=== PATIENT | male | born 1950 | race Caucasian/White ===

== ENCOUNTER 2016-03-12 11:34 | Emergency (ER) | payer MEDICARE, OTHER ==
[~2016-03-12] VITALS: Ht 172.7 cm; Wt 87.7 kg
[~2016-03-12 11:34] MED LIST: ALPR.25T PO; ASPI-351 PO; FENO160T14 PO; GLPZ5T1 PO; INSU100V10 SQ; ISOS30TA41 PO; LISI10TA PO; LOPRESSOR25 MG PO; OMPR20CCR PO; ZOC20 PO
[2016-03-12 12:02] VITALS: BP 144/83; PULSE 82; RESP 20; O2SAT 97
--- NOTE | 2016-03-12 13:31 | ED.REPORT ---
HPI-Psychiatric Illness Date of Service Mar 12, 2016 ED Provider: Neyda Andrade History of Present Illness: depression SI thoughts, dx in 84 as bipolar. 2 mvas in the last 2 week. dx with influenza 2 weeks ago, feeling better from the influenza. counselor is samson denny with the [facility]. last visit was a week ago today. jordin is primary care, he is at the [facility]. reports many plans over the years, depends on his moods. Nursing Notes Stated Complaint: EXCESSIVE DEPRESSION Chief Complaint: Psychiatric Complaint Nursing Notes Reviewed: Yes Allergies: Coded Allergies: diphenhydramine (Verified Allergy, Severe, 06/24/10) incoherent clotrimazole (Verified Allergy, Mild, PER H&P, 06/24/10) lamotrigine (Verified Allergy, Mild, 06/24/10) Uncoded Allergies: Lomotrogine (Allergy, Severe, decreases cognition greatly, 08/08/04) Lamotrigine (Allergy, Unknown, 08/18/04) Pt states SE to much but was not specific. Disregard previous allergy (same drug, wrong spelling).. Scheduled Alprazolam-Expunged Drug, Do Not Renew! (Alprazolam-Expunged Drug, Do Not Renew! ) 0.25 Mg Tablet 0.25 MG PO Q8 Aspirin-Expunged Drug, Do Not Renew! (Aspirin-Expunged Drug, Do Not Renew!) 325 Mg Tablet 325 MG PO DAILY Fenofibrate-Expunged Drug, Do Not Renew! (Fenofibrate-Expunged Drug, Do Not Renew!) 160 Mg Tablet 160 MG PO DAILY INSULIN GLARGINE-Expunged Drug, Do Not Renew! (Lantus-Expunged Drug, Do Not Renew!) 100 Unit/1 Ml Vial 10 U SQ HS Isosorbide Pitt-Expunged Drug, Do Not Renew! (Yvvms-Df-Ltbzagfr Drug, Do Not Renew!) 30 Mg Tabcr 60 MG PO DAILY Lisinopril-Expunged Drug, Do Not Renew! (Lisinopril-Expunged Drug, Do Not Renew! ) 10 Mg Tablet 10 MG PO AM Metoprolol Tart-Expunged Drug, Do Not Renew! (Metoprolol Tart-Expunged Drug, Do Not Renew!) 25 Mg Tab 12.5 MG PO BID Omeprazole-Expunged Drug, Do Not Renew! (Omeprazole-Expunged Drug, Do Not Renew! ) 20 Mg Capsule.dr 20 MG PO AM Simvastatin-Expunged Drug, Choose New Med! (Simvastatin-Expunged Drug, Choose New Med!) 20 Mg Tablet 20 MG PO HS glipiZIDE-Expunged Drug, Do Not Renew! (glipiZIDE-Expunged Drug, Do Not Renew!) 5 Mg Tablet 5 MG PO BID General Time Seen by MD: 13:29 Chief Complaint Suicidal ideation Hx Obtained From: Patient Onset Occurred: Onset unknown Symptom Duration: Since onset Risk-Psychiatric Illness Suicide Risk Stratification Suicide Risk Factors - Adult: : Previous attempt (last attempt was 8 years ago , sttes unable to remember mechanism): Prior psych admission (last admission was 6 years ago at the [facility])No: Access to firearms, Alcohol use, Close associate suicide, Family Hx of Suicide, Substance abuse RF Statements: Risk factors reviewed Past Medical History Past Medical History Reports: Diabetes mellitus (takes insulin), Denies: Asthma Past Surgical History hip replacement times 2 and bypass, and cataract surgery Smoking History Never Smoker Social History Alcohol Use: Denies alcohol use Drug Use: Denies drug use Occupation lives by self, friend is with him retired 03/12/2016 Ambulatory Status Independent Review of Systems Basic Review of Systems Eyes: Vision NL, No discharge ENT: Hearing NL, No pain, No nasal congestion, No pharyngeal pain : No dysuria, No frequency Musculoskeletal: No extremity swelling, No extremity pain, Full range of motion , Joints NL Hematologic: No bleeding, No bruising Endocrine: No cold intolerance, No heat intolerance, No weight gain, No weight loss Allergy / Immune: No allergy Physical Exam Initial Vital Signs Vital Signs (First) Date Time Temp Pulse Resp B/P Pulse Ox O2 Delivery O2 Flow Rate FiO2 03/12/16 12:02 37.2 82 20 144/83 97 Room Air Initial VS: Reviewed, Vital signs normal Head / Eyes: Atraumatic, Normocephalic, PERRL ENT: Mucous membranes moist, Conjunctiva normal, No scleral icterus Neck: Supple, Non-tender, Full range of motion Respiratory: Breath sounds normal, Clear to auscultation, No respiratory distress Cardiovascular: Regular rate & rhythm, Heart sounds normal, Intact distal pulses Abdomen / GI: Soft, Non-tender, No guarding, No rebound, No distention Back: No CVA tenderness Lymphatic: No lymphadenopathy Extremities: Vascular intact, Neuro intact, No swelling, No tenderness Skin: Warm, Dry, No cyanosis General/Constitutional: Awake, Alert, No acute distress, Well appearing, Well developed, Well hydrated, Well nourished, Cooperative, Not toxic appearing Neurologic: Oriented X3, Speech NL, No motor deficits, No sensory deficits, CN II - XII intact, Reflexes equal bilat, Cerebellar NL, Memory NL, Gait NL Abnormal Mood/Affect: Positive: Flat affect Abnormal Thinking / Perception: Positive: Flight of ideas Head / Eyes: Atraumatic, Normocephalic, PERRL, EOMI, No nystagmus ENT: Atraumatic, Airway patent, Mucous membranes moist, Pharynx NL Respiratory / Chest: Atraumatic, Breath sounds NL, Breath sounds = bilat, No respiratory distress Cardiovascular: Heart rate NL, Regular rhythm, Heart sounds NL, No gallop Interpretation & Diagnostics Lab Results Interpretation Result Diagram: 03/12/16 1356 03/12/16 1356 Test 03/12/16 13:03 03/12/16 13:56 Hold Urine Received (Received) White Blood Count 9.1th/mm3 (3.8-10.1) Red Blood Count 4.93mil/mm3 (4.40-5.80) Hemoglobin 15.0g/dL (13.8-17.2) Hematocrit 42.5% (41.0-50.0) Mean Corpuscular Volume 86.2fL (81-100) Mean Corpuscular Hemoglobin 30.4pg (27.0-35.0) Mean Corpuscular Hemoglobin Concent 35.3% (32.0-37.0) Red Cell Distribution Width 13.2% (12.3-15.4) Platelet Count 215bil/L (150-400) Neutrophils (%) (Auto) 72.5% (40-74) Lymphocytes (%) (Auto) 17.0% (14-46) Monocytes (%) (Auto) 8.8% (4-12) Eosinophils (%) (Auto) 1.3% (0-5) Basophils (%) (Auto) 0.2% (0-3) Sodium Level 136mEq/L (134-144) Potassium Level 3.9mEq/L (3.5-5.2) Chloride Level 99mEq/L (97-108) Carbon Dioxide Level 26mmol/L (18-29) Blood Urea Nitrogen 17mg/dL (8-27) Creatinine 0.64mg/dL (0.76-1.27) Estimat Glomerular Filtration Rate 133mL/min (>59) Glucose Level 141mg/dL (60-99) Calcium Level 9.3mg/dL (8.5-10.1) Total Bilirubin 0.3mg/dL (0.0-1.2) Aspartate Amino Transf (AST/SGOT) 17U/L (0-50) Alanine Aminotransferase (ALT/SGPT) 15U/L (0-44) Alkaline Phosphatase 129U/L (25-160) Total Protein 6.6g/dL (6.4-8.4) Albumin 3.6g/dL (3.4-5.0) Thyroid Stimulating Hormone (TSH) 1.190uIU/mL (0.450-4.500) Hold Lester Top Tube Received (Received) CT Head Interpretation TECHNIQUE: Noncontrast 4.5 mm thick angled axial sections acquired from the foramen magnum to the vertex, with coronal reformats. COMPARISON: [facility], CT, HEAD WITHOUT CONTRAST, 01/20/2016, 19:01. FINDINGS: Image quality: Excellent. CSF spaces: Basal cisterns are patent. No extra-axial fluid collections. The ventricles are symmetric in size and shape. Brain: No intracranial bleeds or masses. There is cerebral volume loss for age, with resultant ventricular and sulcal prominence. There are periventricular and deep white matter chronic small vessel ischemic changes. There is intracranial internal carotid artery atherosclerosis. Skull and face: Calvarium and visualized facial bones appear intact, without suspicious lesions. Sinuses: Visualized sinuses and mastoids are clear. IMPRESSION: No acute intracranial abnormality. Re-Eval/Medical Decision Med Decision/Clinical Course patient was uncooperative with METAL BENDING MACHINE OPERATOR, DCR called and cleared for discharge. METAL BENDING MACHINE OPERATOR speaks with patient and agrees. Differential Diagnosis: Positive: Conversion disorder, Personality disorder Discharge & Departure Impression: Primary Impression: Depression Depression Type: unspecified Qualified Code: F32.9 - Major depressive disorder, single episode, unspecified Additional Impression: Anxiety Patient Instructions: Major Depression (GEN) Additional Instructions: [facility] was normal. Your labs were normal. Urine did not show any sign of infection. Please follow with primary care later this week. REturn with any concerns. Referrals: [facility] ([facility]) EDSupervising Provider for APC: Carlyle Stephens DO [facility] Neyda Andrade Mar 12, 2016 13:31
[2016-03-12 14:06] LABS: BASOPHILS % (AUTO) 0.2 % (0-3); EOSINOPHILS % (AUTO) 1.3 % (0-5); MONOCYTES % (AUTO) 8.8 % (4-12); Mean Corpuscular Hemoglobin 30.4 pg (27.0-35.0); Mean Corpuscular Volume 86.2 fL (81-100); NEUTROPHILS % (AUTO) 72.5 % (40-74); Platelet Count 215 bil/L (150-400)
[2016-03-12 15:51] VITALS: BP 164/90; PULSE 74; RESP 18; O2SAT 96
--- NOTE | 2016-03-12 19:30 | DRSVH ---
PROCEDURE: CT BRAIN WITHOUT CONTRAST ([id number]) INDICATIONS: memory issues TECHNIQUE: Noncontrast 4.5 mm thick angled axial sections acquired from the foramen magnum to the vertex, with c oronal reformats. COMPARISON: [facility], CT, HEAD WITHOUT CONTRAST, 01/20/2016, 19:01. FINDINGS: Image quality: Excellent. CSF spaces: Basal cisterns are patent. No extra-axial fluid collections. The ventricles are symmet jennifer in size and shape. Brain: No intracranial bleeds or masses. There is cerebral volume loss for age, with resultant vent ricular and sulcal prominence. There are periventricular and deep white matter chronic small vessel ischemic changes. There is intracranial internal carotid artery atherosclerosis. Skull and face: Calvarium and visualized facial bones appear intact, without suspicious lesions. Sinuses: Visualized sinuses and mastoids are clear. IMPRESSION: No acute intracranial abnormality. Dictated by: Kamille Moralez M.D. on 03/12/2016 at 19:28 Approved by: Kamille Moralez M.D. on 03/12/2016 at 19:28
[2016-03-12 20:39] VITALS: BP 156/78; PULSE 76; RESP 16; O2SAT 96
== END 2016-03-12 20:40 | disposition home or self-care (01) ==
LOC: SED 11:34
DX: F32.9 Major depressive disorder, single episode, unspecified (principal); F41.9 Anxiety disorder, unspecified; E11.9 Type 2 diabetes mellitus without complications; Z95.1 Presence of aortocoronary bypass graft; Z79.4 Long term (current) use of insulin; Z79.82 Long term (current) use of aspirin; Z88.8 Allergy status to other drugs, medicaments and biological substances; Z88.3 Allergy status to other anti-infective agents

== ENCOUNTER 2016-04-25 16:48 | Emergency (ER) | payer MEDICARE, OTHER ==
[~2016-04-25] VITALS: Ht 172.7 cm; Wt 91.1 kg
[2016-04-25 16:56] VITALS: BP 142/77; PULSE 68; RESP 16; O2SAT 96
[2016-04-25 17:23] LABS: BASOPHILS % (AUTO) 0.2 % (0-3); EOSINOPHILS % (AUTO) 2.1 % (0-5); MONOCYTES % (AUTO) 8.5 % (4-12); Mean Corpuscular Hemoglobin 30.1 pg (27.0-35.0); Mean Corpuscular Volume 85.5 fL (81-100); NEUTROPHILS % (AUTO) 69.6 % (40-74); Platelet Count 216 bil/L (150-400)
--- NOTE | 2016-04-25 17:39 | ED.REPORT ---
HPI-General Illness Date of Service Apr 25, 2016 ED Provider: Michelle Jason MD The patient is a 65 year old male with history of coronary artery disease s/p CABG, hypertension, diabetes mellitus, dyslipidemia, anxiety, depression, and bipolar disorder, who presents to the emergency department complaining of chest pain. 2 days ago the patient had an episode of left-sided chest pain. Yesterday the pain was intermittent. At times his pain has radiated into the right side of his chest. He is currently having chest pain. He has also noticed shortness of breath, lightheadedness, diaphoresis. He took 81 mg aspirin today. He denies nausea or lower extremity swelling. He is not on any blood thinners. Nursing Notes Stated Complaint: LEFT ARM PAIN, CHEST PAIN Chief Complaint: Chest Pain Nursing Notes Reviewed: Yes Allergies: Coded Allergies: diphenhydramine (Verified Allergy, Severe, 06/24/10) incoherent clotrimazole (Verified Allergy, Mild, PER H&P, 06/24/10) lamotrigine (Verified Allergy, Mild, 06/24/10) Uncoded Allergies: Lomotrogine (Allergy, Severe, decreases cognition greatly, 08/08/04) Lamotrigine (Allergy, Unknown, 08/18/04) Pt states SE to much but was not specific. Disregard previous allergy (same drug, wrong spelling).. Scheduled Amlodipine (Amlodipine) 5 Mg Tablet 5 MG PO DAILY Aspirin Chew (Aspirin Chew) 81 Mg Chew 81 MG PO DAILY Insulin Glargine (Lantus U100 Insulin Vial) 100 Unit/Ml Vial 10 UNIT SUBQ DAILY Can't remember dose, states depends on blood sugar Latanoprost (Latanoprost) 2.5 Ml Drops 1 GTT BOTH_EYES HS Lurasidone (Latuda) 20 Mg Tablet 30 MG PO DAILY Scheduled PRN Naproxen (Naproxen) 250 Mg Tablet 250 MG PO BID PRN PRN For Pain Propranolol HCl (Propranolol HCl) 10 Mg Tablet 10 MG PO TID PRN PRN For Anxiety General Time Seen by MD: 17:31 Chief Complaint Chest pain Hx Obtained From: Patient Arrived By: Walk-in Sudden in Onset?: No Onset Occurred: 2 days ago Symptom Duration: Intermittent Location: : Chest: Leg left: Leg right Quality: Painful Severity: Current: Mild Severity: Maximum: Severe Recent Healthcare: No recent doctor visit, No recent hospitalization Similar Sx Previous: No Past Medical History Past Medical History Bipolar disorder with depression Sleep apnea on CPAP Anxiety Hypertension Dyslipidemia Reports: Coronary artery disease, Diabetes mellitus Past Surgical History Hip replacement x2 CABG Cataract surgery Corneal transplant Hernia repair Appendectomy Family History Noncontributory Smoking History Never Smoker Social History Alcohol Use: Denies alcohol use Drug Use: Denies drug use Other Social History: Local resident Occupation lives by self, friend is with him retired 03/12/2016 Ambulatory Status Independent Review of Systems Full Review of Systems Respiratory: Reports: Shortness of breath Cardiovascular: Reports: Chest pain GI: Denies: Nausea, Vomiting Musculoskeletal: Reports: Extremity pain, Denies: Extremity swelling Neurologic: Reports: Lightheaded Complete sys rev & neg: except as marked. Physical Exam Vital Signs Vital Signs Date Time Temp Pulse Resp B/P Pulse Ox O2 Delivery O2 Flow Rate FiO2 04/25/16 19:23 62 18 127/71 98 Room Air 04/25/16 18:43 66 14 128/72 97 Nasal Cannula 2 04/25/16 18:28 60 14 132/76 97 Nasal Cannula 2 04/25/16 16:56 36.2 68 16 142/77 96 Initial VS: Reviewed Head / Eyes: Atraumatic, Normocephalic, PERRL ENT: Mucous membranes moist, Conjunctiva normal, No scleral icterus Neck: Supple, Non-tender, Full range of motion Cardiovascular: Regular rate & rhythm, Heart sounds normal, Intact distal pulses Abdomen / GI: Soft, Non-tender, No guarding, No rebound, No distention Lymphatic: No lymphadenopathy Extremities: Vascular intact, Neuro intact, No swelling, No tenderness Skin: Warm, Dry, No cyanosis Neurologic: Alert, Oriented, Nonfocal Psychiatric: Mood/affect normal, Behavior normal, Normal thought content General/Constitutional: Awake, Alert, No acute distress, Cooperative Respiratory / Chest: Atraumatic, Breath sounds NL, Breath sounds = bilat, No respiratory distress, No rales, No rhonchi, No wheezing, No retractions, No stridor, No chest tenderness, No chest wall deformity Midline sternotomy scar Interpretation & Diagnostics Lab Results Interpretation Result Diagram: 04/25/16 1710 04/25/16 1710 Test 04/25/16 17:10 White Blood Count 9.2th/mm3 (3.8-10.1) Red Blood Count 5.05mil/mm3 (4.40-5.80) Hemoglobin 15.2g/dL (13.8-17.2) Hematocrit 43.2% (41.0-50.0) Mean Corpuscular Volume 85.5fL (81-100) Mean Corpuscular Hemoglobin 30.1pg (27.0-35.0) Mean Corpuscular Hemoglobin Concent 35.2% (32.0-37.0) Red Cell Distribution Width 13.0% (12.3-15.4) Platelet Count 216bil/L (150-400) Neutrophils (%) (Auto) 69.6% (40-74) Lymphocytes (%) (Auto) 19.4% (14-46) Monocytes (%) (Auto) 8.5% (4-12) Eosinophils (%) (Auto) 2.1% (0-5) Basophils (%) (Auto) 0.2% (0-3) Sodium Level 132mEq/L (134-144) Potassium Level 4.1mEq/L (3.5-5.2) Chloride Level 96mEq/L (97-108) Carbon Dioxide Level 23mmol/L (18-29) Blood Urea Nitrogen 12mg/dL (8-27) Creatinine 0.57mg/dL (0.76-1.27) Estimat Glomerular Filtration Rate 152mL/min (>59) Glucose Level 224mg/dL (60-99) Calcium Level 9.0mg/dL (8.5-10.1) Magnesium Level 1.9mg/dL (1.6-2.6) Total Bilirubin 0.4mg/dL (0.0-1.2) Aspartate Amino Transf (AST/SGOT) 19U/L (0-50) Alanine Aminotransferase (ALT/SGPT) 17U/L (0-44) Alkaline Phosphatase 136U/L (25-160) Troponin T < 0.010ug/L (0.0-0.011) Total Protein 7.2g/dL (6.4-8.4) Albumin 3.9g/dL (3.4-5.0) Hold Lester Top Tube Received (Received) ECG Interpretation ECG Interpretation: Sinus bradycardia with a rate of 57 T wave inversion in aVR Unchanged from prior No STEMI Time: 17:08 Interpreted by: ED physician X-Ray Chest Interpretation Chest Xray Interpretation: IMPRESSION: Acute disease is not seen in the semiupright portable chest. Particularly no pneumothorax or effusion is seen in the left chest. Dictated by: Sony Reynolds M.D. on 04/25/2016 at 18:05 Interpretation / Wet Read by: Interpret - Radiologist Re-Eval/Medical Decision Med Decision/Clinical Course 65-year-old male with extensive cardiac history including CABG here with chest pain. Differential diagnosis includes but is not limited to ACS versus pneumonia versus PE versus aortic dissection. Patient shows no evidence of hypoxia, and has no risk factors for PE, and at this time do not feel he requires workup for PE. Additionally, his chest x-ray did not show any evidence of widened mediastinum, and he has not been particularly hypertensive in the emergency department, leading me to feel that he does not require a CTA chest to rule out aortic dissection. I feel he most likely has ACS at this time , and have admitted him to the hospital for formal rule out. He is aware and amenable to this plan. Source of Hx: Old records Time of Eval: 18:00 Re-Evaluation/Progress Note: Discussed plan for admission. Consultation : Referral / Consult Name: Lupe Beasley DO Consulted With: Hospitalist Call Returned at: 19:01 Senior Librarian: Will see patient, Agrees with eval, Agrees with plan, Accepts admit Counseled Regarding: Diagnosis, Lab results, Need for admission Discharge & Departure Primary Impression: Chest pain Chest pain type: unspecified Qualified Code: R07.9 - Chest pain, unspecified Disposition: ADMITTED TO HOSPITAL Discharge Condition All VS Reviewed: Yes Condition: Stable Referrals: [facility] (PCP) Sony Garduno MD (Family) Sriram Attestation Portions of this note were transcribed by Erika Valencia. I, Dr. Jason personally performed the history, physical exam and medical decision-making; I reviewed and confirmed the accuracy of the information in the transcribed note. Signed by: Sriram Duval, 04/25/2016 and 1905. copies to: Sony Garduno MD; [facility] Michelle Jason MD Apr 25, 2016 17:39 Erika Valencia Apr 25, 2016 17:46
[2016-04-25 17:51] LABS: TROPONIN T < 0.010 ug/L (0.0-0.011)
[2016-04-25 18:00] LABS: Magnesium 1.9 mg/dL (1.6-2.6)
--- NOTE | 2016-04-25 18:07 | DRSVH ---
PROCEDURE: X-RAY CHEST ONE VIEW, PORTABLE ([id number]) INDICATIONS: Chest pain TECHNIQUE: One view of the chest was acquired. COMPARISON: [facility], , CHEST 1VW (PORTABLE), 06/22/2010, 17:24. FINDINGS: Surgical changes and devices: hospital monitor leads and sternotomy wires are present over the chest. Lungs and pleura: No pleural effusions or pneumothorax. Lungs are clear. Mediastinum: Mediastinal contours appear normal. Heart size is normal. Bones and chest wall: No suspicious bony lesions. Overlying soft tissues appear unremarkable. IMPRESSION: Acute disease is not seen in the semiupright portable chest. Particularly no pneumothorax or effusion is seen in the left chest. Dictated by: Sony Reynolds M.D. on 04/25/2016 at 18:05 Approved by: Sony Reynolds M.D. on 04/25/2016 at 18:06
[2016-04-25 18:28] VITALS: BP 132/76; PULSE 60; RESP 14; O2SAT 97
[2016-04-25 18:43] VITALS: BP 128/72; PULSE 66; RESP 14; O2SAT 97
[2016-04-25] MEDS ORDERED: PROP10TA8 PO (19:05)
[2016-04-25] MEDS ORDERED: AMLO5TAB2 PO (19:05)
[2016-04-25] MEDS ORDERED: ASPI81TA3 PO (19:05)
[2016-04-25] MEDS ORDERED: LURA20TA PO (19:06)
[2016-04-25] MEDS ORDERED: LATA2.5D6 BOTH_EYES (19:06)
[2016-04-25] MEDS ORDERED: NAPR250T PO (19:06)
[2016-04-25] MEDS ORDERED: INSU100V7 SUBQ (19:07)
[2016-04-25] MEDS ORDERED: Ondansetron 2 mg/mL 2 mL Inj IVPUSH PRN ×2 (19:10→20:05)
[2016-04-25] MEDS ORDERED: Senna-Docusate 8.6-50 mg Tablet PO PRN ×2 (19:10→20:05)
[2016-04-25] MEDS ORDERED: Polyethylene Glycol (PEG) 17 Gm Powder PO PRN ×2 (19:10→20:05)
[2016-04-25] MEDS ORDERED: Alum-Mag Hydrox-Simeth 30 mL Suspension PO PRN ×2 (19:10→20:05)
[2016-04-25 19:23] VITALS: BP 127/71; PULSE 62; RESP 18; O2SAT 98
[2016-04-25] MEDS ORDERED: Heparin 5,000 Unit/mL Inj SUBQ SCH (20:05)
[2016-04-25] MEDS ORDERED: Atropine 1 mg/10 mL (Code) Syringe IVPUSH PRN (20:05)
[2016-04-25] MEDS ORDERED: Glucose 40% Oral Gel 15 Gm Tube PO PRN (20:40)
[2016-04-25 20:43] VITALS: PULSE 58
--- NOTE | 2016-04-25 20:53 | PCM.HPMED ---
Subjective Date of Service Apr 25, 2016 Primary Provider: Admitting Physician: Lupe Beasley DO Primary [facility] Phys[facility]: [facility] Attending Physician: Lupe Beasley DO Admit Status: From the Emergency Department Chief Complaint: Chest pain History of Present Illness: 65-year-old male patient with a history of insulin-dependent diabetes, NSTEMI, CAD requiring CABG, hypertension, hyperlipidemia, and bipolar disorder presents to the ER with complaint of chest pain. Patient reports that on Friday he began experiencing chest pain that radiated to his entire body. Patient states that he did not go to the doctor as he suspected the pain would go away on its own. Patient states that he is unsure if the pain subsided or he just became accustomed to it. Patient reports that today the pain became significantly worse and he called his friend to bring him to the ER. Patient reports that he was experiencing sharp midsternal chest pain that was radiating into his left shoulder and down his left arm, as well as across his chest and back. Patient reports that he began feeling very short of breath as though he was taking very shallow breaths. He states that he felt very hot and flushed all over. Patient reports that this episode occurred while he was resting at home. Patient reports that he is currently still experiencing some chest pain, but reports that it is significantly less than that onset. He also reports that he continues to have some mild shortness of breath. Patient reports that when he arrived in the ER he was feeling quite dizzy, but this has been improving as he is resting in bed. Patient reports that this episode of chest pain was unlike his previous episode that resulted in him requiring a CABG. Patient denies that he has been experiencing episodes of chest pain recently. Patient denies any headache, blurred vision, nausea, vomiting, diarrhea, myalgias. While in the ER patient received nitroglycerin and morphine. Vital signs in the ER were as follows, temperature 36.2, pulse 68, respiratory rate 16, blood pressure 142/77, pulse ox 96 on room air. Review of Systems: A comprehensive review of systems was conducted with the patient and found to be negative except as above in the History of Present Illness. Allergies Coded Allergies: diphenhydramine (Verified Allergy, Severe, 06/24/10) incoherent clotrimazole (Verified Allergy, Mild, PER H&P, 06/24/10) lamotrigine (Verified Allergy, Mild, 06/24/10) Uncoded Allergies: Lomotrogine (Allergy, Severe, decreases cognition greatly, 08/08/04) Lamotrigine (Allergy, Unknown, 08/18/04) Pt states SE to much but was not specific. Disregard previous allergy (same drug, wrong spelling).. Home Medications Amlodipine Aspirin Lantus Latuda Propanolol PMH NSTEMI Coronary artery disease requiring CABG 2010 Insulin-dependent diabetes Bipolar disorder Hypertension Hyperlipidemia Anxiety Depression Obstructive sleep apnea on CPAP Surgical History CABG Cataract surgery Corneal transplant Bilateral hip replacements Knee surgery Hernia repair Appendectomy Family History Father-diabetes, prostate cancer Mother-CVA, dementia, coronary artery disease Social History Hx Alcohol Use: No Hx Substance Use: No Hx Tobacco Use: No Smoking Status: Never Smoker Living Arrangement: Alone Exam Vital Signs Vital Sign - Last Date Time Temp Pulse Resp B/P Pulse Ox O2 Delivery O2 Flow Rate FiO2 04/25/16 19:23 62 18 127/71 98 Room Air 04/25/16 18:43 2 04/25/16 16:56 36.2 Exam General: No acute distress, well-developed, well-nourished, appropriately interactive HEENT: Normocephalic, atraumatic. External ears without defect. Pupils equal, round, and reactive to light and accommodation. Moist conjunctivae. Oropharynx with moist mucosa. Neck: Supple with full range of motion.No lymphadenopathy Cardiovascular: Regular rate and rhythm with systolic murmur. No rubs, or gallops appreciated Pulmonary: Clear to auscultation bilaterally with no crackles, wheezes, or rhonchi. Normal respiratory effort with no use of accessory muscles. Abdomen: Bowel tones present. Soft, nontender, nondistended. Extremities: No clubbing, cyanosis, edema, appreciated. Skin: Vertical scar mid-sternum. Normal temperature, turgor, and texture; no rash, ulcers, or subcutaneous nodules appreciated. Psychiatric: Normal mood and affect. Alert and oriented to person, place, and time. Lab and Diagnostics Result Diagram: 04/25/16 1710 04/25/16 1710 X-Rays, CTs and MRIs PROCEDURE: X-RAY CHEST ONE VIEW, PORTABLE ([id number]) INDICATIONS: Chest pain TECHNIQUE: One view of the chest was acquired. COMPARISON: [facility], , CHEST 1VW (PORTABLE), 06/22/2010, 17:24. FINDINGS: Surgical changes and devices: radiation monitor leads and sternotomy wires are present over the chest. Lungs and pleura: No pleural effusions or pneumothorax. Lungs are clear. Mediastinum: Mediastinal contours appear normal. Heart size is normal. Bones and chest wall: No suspicious bony lesions. Overlying soft tissues appear unremarkable. IMPRESSION: Acute disease is not seen in the semiupright portable chest. Particularly no pneumothorax or effusion is seen in the left chest. Dictated by: Sony Reynolds M.D. on 04/25/2016 at 18:05 Approved by: Sony Reynolds M.D. on 04/25/2016 at 18:06 Assessment & Plan Acute chest pain in the setting of CAD with previous CABG, present on admission , ongoing -EKG in the ER did not demonstrate any ST elevations -Chest x-ray in the ER did not demonstrate any acute disease -Patient continues to experience some mild chest pain, but improved from onset. -Patient has nitroglycerin and morphine available for pain control -Nitro paste 1 inch placed on chest for pain relief. -Patient to be NPO after midnight -IVF with NS at 80mls/hr -Stress test ordered for the morning. If patient continues to have pain, recommend Cardiology consult, as pt may not be suitable for stress test. -Echo in the morning -Trending troponins every 6 hours. Initial 2 troponins negative -Patient on telemetry -Continue to monitor -Heparin drip started given continued pain and cardiac history. Insulin dependent diabetes mellitus, present on admission, ongoing -A1c pending -Placing patient on low-dose correctional scale -After stress test will switch patient to diabetic diet Chronic hypertension, presumed stable -Continue amlodipine -Continue to monitor Chronic hyperlipidemia presumed stable -Lipid panel ordered for the morning Bipolar disorder, presumed stable. -Continue Latuda -We will hold beta aye ( used for anxiety) for stress test Patient is admitted under observation status with expected length of stay less than 2 midnights due to severity of presenting symptoms, risk of adverse event, and complexity of treatment plan. DVT prophylaxis-heparin CODE STATUS: Full code PCP: Dr. Garduno at the [facility] Currently patient reports he does not have an official DPO A, however he states that for the length of this hospitalization he would like his friend to be his DPOA. Current DPOA: Morgan Suazo [phone] Pain Evaluation: Adequate Pain Control VTE Prophylaxis: Sub-Q Heparin (Unfractionated) Resuscitation Status: CPR: Attempt Resuscitation Attending Statement The patient was seen and examined together with house staff on 04/25/2016 and I agree with the history, exam and plan as outlined in the note above. copies to: Sony Garduno MD, Tara L DO Apr 25, 2016 20:36 Lupe Beasley DO Apr 26, 2016 02:48
[2016-04-25 20:58] VITALS: BP 146/83; PULSE 57; RESP 18; O2SAT 97
[2016-04-25] MEDS: 0.9% Sodium Chloride 1,000 ML IV SCH (21:09)
[2016-04-25] MEDS ORDERED: Nitroglycerin 2% 1 Gm Ointment TOPICAL SCH (21:40)
[2016-04-25] MEDS: Insulin LISPRO 300 Unit/3 mL Inj SUBQ SCH (22:00)
[2016-04-25] MEDS: Heparin 25K Unit/500mL 0.45 NS 25,000 UNIT in IV Premix 1 EACH IV SCH (22:20)
--- NOTE | 2016-04-25 23:05 | NUR ---
Admission Pt arrived to room 3020 alert and oriented, able to ambulate but very weak and unsteady, required hands on assistance and later required FWW to get to BR. Pt was oriented to room, call light, bed and policies. Pts bld sugar was asses on arrival and given snack per MD's ok. Pt has continued to complain of chest discomfort 5/10 pain and MD requested we give him another 4mg of morphine. Pt reported relief from chest discomfort. Pt was started on heparin drip and has been tolerating well. Pt also reported depression, past suicide attempt, and recent thoughts of harming himself. Pt reliably signed no harm contract and said "its the last thing on my mind at the moment" Pt does not require routine safety checks per suicide risk score. Pt has been compliant and using call light appropriately. bed in lowest position and call light in reach.
[2016-04-26] VITALS (7 sets, daily range): BP systolic 126–164; BP diastolic 74–86; PULSE 61–74; RESP 16–18; O2SAT 94–95
[2016-04-26] MEDS: Sodium Chloride LOK Flush 10 mL Syringe IVFLUSH SCH ×3 (00:22→16:30)
[2016-04-26] MEDS ORDERED: Sodium Chloride LOK Flush 10 mL Syringe IVFLUSH SCH (00:30)
[2016-04-26] MEDS ORDERED: Nitroglycerin 2% 1 Gm Ointment TOPICAL ONE (01:40)
[2016-04-26] MEDS: Heparin 5,000 Unit/mL Inj IVPUSH PRN ×2 (04:33→22:37)
[2016-04-26 06:35] LABS: BASOPHILS % (AUTO) 0.4 % (0-3); EOSINOPHILS % (AUTO) 1.9 % (0-5); MONOCYTES % (AUTO) 7.5 % (4-12); Mean Corpuscular Hemoglobin 31.1 pg (27.0-35.0); Mean Corpuscular Volume 86.1 fL (81-100); NEUTROPHILS % (AUTO) 69.9 % (40-74); Platelet Count 202 bil/L (150-400)
[2016-04-26 07:33] LABS: TROPONIN T < 0.010 ug/L (0.0-0.011)
[2016-04-26] MEDS: Insulin LISPRO 300 Unit/3 mL Inj SUBQ SCH ×4 (09:11→22:50)
[2016-04-26] MEDS: 0.9% Sodium Chloride 1,000 ML IV SCH ×2 (09:12→22:37)
--- NOTE | 2016-04-26 16:52 | PCM.PNMED ---
Subjective Date of Service Apr 26, 2016 Subjective Thi is a 65-year-old male patient with a history of insulin-dependent diabetes, NSTEMI, CAD requiring CABG, hypertension, hyperlipidemia, and bipolar disorder who presented to the ER with complaint of chest pain. Admitted for SD rule out. Hospital day #2. No acute overnight events. Patient's troponin remain negative x 3. Patient endorses chest pain radiating to left shoulder. Denies shortness of breath, nausea, vomiting, diarrhea. Exam Vital Signs Vital Sign - Last Date Time Temp Pulse Resp B/P Pulse Ox O2 Delivery O2 Flow Rate FiO2 04/26/16 13:26 36.5 68 18 150/80 95 Room Air 04/25/16 18:43 2 Exam General: No acute distress, well-developed, well-nourished, appropriately interactive HEENT: Normocephalic, atraumatic. External ears without defect. Pupils equal, round, and reactive to light and accommodation. Moist conjunctivae. Oropharynx with moist mucosa. Neck: Supple with full range of motion.No lymphadenopathy Cardiovascular: Regular rate and rhythm with systolic murmur. No rubs, or gallops appreciated Pulmonary: Clear to auscultation bilaterally with no crackles, wheezes, or rhonchi. Normal respiratory effort with no use of accessory muscles. Abdomen: Bowel tones present. Soft, mild tenderness to right upper quadrant, nondistended. Extremities: No clubbing, cyanosis, edema, appreciated. Skin: Vertical scar mid-sternum. Normal temperature, turgor, and texture; no rash, ulcers, or subcutaneous nodules appreciated. Psychiatric: Normal mood and affect. Alert and oriented to person, place, and time. Lab and Diagnostics Result Diagram: 04/26/16 1221 04/26/16 0605 X-Rays, CTs and MRIs PROCEDURE: X-RAY CHEST ONE VIEW, PORTABLE ([id number]) INDICATIONS: Chest pain TECHNIQUE: One view of the chest was acquired. COMPARISON: [facility], , CHEST 1VW (PORTABLE), 06/22/2010, 17:24. FINDINGS: Surgical changes and devices: court monitor leads and sternotomy wires are present over the chest. Lungs and pleura: No pleural effusions or pneumothorax. Lungs are clear. Mediastinum: Mediastinal contours appear normal. Heart size is normal. Bones and chest wall: No suspicious bony lesions. Overlying soft tissues appear unremarkable. IMPRESSION: Acute disease is not seen in the semiupright portable chest. Particularly no pneumothorax or effusion is seen in the left chest. Dictated by: Sony Reynolds M.D. on 04/25/2016 at 18:05 Approved by: Sony Reynolds M.D. on 04/25/2016 at 18:06 Assessment & Plan Acute chest pain in the setting of CAD with previous CABG, present on admission , ongoing -EKG in the ER did not demonstrate any ST elevations -Chest x-ray in the ER did not demonstrate any acute disease -Patient continues to experience some mild chest pain, but improved from onset. -Patient has nitroglycerin and morphine available for pain control -Nitro paste 1 inch placed on chest for pain relief. -Patient to be NPO after midnight -IVF with NS at 80mls/hr -Heparin drip started given continued pain and cardiac history. -Nuclear Stress test performed this morning, awaiting official report. Resting portion of the test scheduled for tomorrow. . -Echo pending -Troponins x 3 negative -Patient on telemetry, sinus rhythm in 60's, occasional PAC -Continue to monitor Insulin dependent diabetes mellitus, present on admission, ongoing -A1c 7.5 -Placing patient on low-dose correctional scale -After stress test will switch patient to diabetic diet Chronic hypertension, presumed stable -Continue amlodipine -Start Lisinopril, 5 mg -Continue to monitor Chronic hyperlipidemia presumed stable -Lipid panel: Triglycerides high at 202 -Start atorvastatin 40 mg daily Bipolar disorder, presumed stable. -Continue Latuda -We will hold beta aye ( used for anxiety) for stress test Patient is admitted under observation status with expected length of stay less than 2 midnights due to severity of presenting symptoms, risk of adverse event, and complexity of treatment plan. DVT prophylaxis-heparin CODE STATUS: Full code PCP: Dr. Garduno at the [place] Currently patient reports he does not have an official DPO A, however he states that for the length of this hospitalization he would like his friend to be his DPOA. Current DPOA: Morgan Suazo [phone] VTE Prophylaxis: Sub-Q Heparin (Unfractionated) VTE Mechanical Devices: Intermittant Pneumatic CD Resuscitation Status: CPR: Attempt Resuscitation Attending Statement The patient was seen and examined together with Dr. Marmolejo on 04/26/16 and I agree with the history, exam and plan as outlined in the note above. Silvia Marmolejo DO Apr 26, 2016 16:23 Arely Beard DO Apr 28, 2016 18:25
--- NOTE | 2016-04-26 18:57 | NUR ---
Heparin Drip IV infusing at 1200 Units/hr. Last APTT 38.3 Heparin was Locked for around 90min for Emily-stress test. MD aware. Around 1800 found pt with IV line pulled out and on the floor. Do not know how long IV was out, assumed to be out for 60min. Pt was unaware. Cleaned pt up, put in new Peripheral IV, restarted Heparin at last rate 1200U/hr. Next shift aware and monitoring.
[2016-04-27] VITALS (10 sets, daily range): BP systolic 125–170; BP diastolic 70–87; PULSE 54–69; RESP 18–20; O2SAT 93–100
[2016-04-27] MEDS: Sodium Chloride LOK Flush 10 mL Syringe IVFLUSH SCH ×3 (00:05→16:15)
[2016-04-27] MEDS: Heparin 25K Unit/500mL 0.45 NS 25,000 UNIT in IV Premix 1 EACH IV SCH (00:47)
[2016-04-27 05:07] LABS: APPEARANCE,URINE HAZY (CLEAR,HAZY); COLOR,URINE YELLOW (YELLOW); OCCULT BLOOD,URINE TRACE (NEGATIVE); UROBILINOGEN,URINE NORMAL (NORMAL)
--- NOTE | 2016-04-27 06:04 | NUR ---
Heparin Drip IV infusing at 1400 Units/hr. Last APTT 34.0 Heparin was Locked for around 90min for Emily-stress test. aware. Pt pulled IV out, intact during the night. IV replaced in right hand. Heparin drip restarted.
[2016-04-27 06:20] LABS: BASOPHILS % (AUTO) 0.4 % (0-3); EOSINOPHILS % (AUTO) 2.7 % (0-5); MONOCYTES % (AUTO) 8.9 % (4-12); Mean Corpuscular Hemoglobin 30.8 pg (27.0-35.0); Mean Corpuscular Volume 85.9 fL (81-100); NEUTROPHILS % (AUTO) 65.7 % (40-74); Platelet Count 197 bil/L (150-400)
[2016-04-27] MEDS: Heparin 5,000 Unit/mL Inj IVPUSH PRN (06:43)
[2016-04-27] MEDS: Insulin LISPRO 300 Unit/3 mL Inj SUBQ SCH ×4 (08:00→21:31)
--- NOTE | 2016-04-27 08:48 | NUR ---
Off Unit: Patient off unit to NM via wheelchair @ approx [phone] accompanied by NM tech. information technology associate notified.
--- NOTE | 2016-04-27 10:53 | DRSVH ---
PROCEDURE: 2 DAY STRESS TEST Rest and pharmacological stress myocardial perfusion SPECT with gated imaging and ejection fraction RADIOPHARMACEUTICAL: 23 mCi Tc-99m tetrafosmin IV at rest and 19.5 mCi Tc-99m tetrafosmin IV at peak effect of pharmacological stress. Fcn-dky-cdcorsgn was performed. INDICATIONS: chest pain TECHNIQUE: Radiopharmaceutical was injected at peak stress test, and also at rest. SPECT images wer e obtained. SPECT myocardial perfusion images were displayed in short axis, horizontal long axis, an d vertical long axis views. Gated images were reviewed using [employer] software. COMPARISON: None. CARDIAC STRESS: A pharmacologic stress test was performed under the supervision of an attending staff, using an infus ion of lexiscan . Hemodynamic data: There is normal blood pressure and heart rate response to pharmacologic stress. Symptoms: The patient denied anginal chest pain. Aminophylline: 100 mg EKG: No diagnostic changes of ischemia; no ectopy. FINDINGS: Raw data: There is good myocardial uptake of radiotracer. No significant motion artifacts. ). Left ventricle function: Gated images demonstrate hypokinesis of the septum (most likely related to post op state) Left ventricle resting end diastolic volume is 111 mL. Left ventricle stress ejectio n fraction is 53% ; normal range is above 45%. Myocardial perfusion: There is a very small area of mild to moderately decreased uptake affecting th e basal inferolateral wall that mostly normalizes on the rest images. No other imaging defects appre ciated IMPRESSION: 1. Appropriate hemodynamic response to pharmacologic stress. 2. No chest pain or significant ECG changes with stress. 3. Scintigraphic evidence for a very small area of possible ischemia affecting the basal inferolatera l wall. 4. Normal left ventricular size and systolic function. Dictated by: Elaine Natarajan M.D. on 04/27/2016 at 10:45 Approved by: Elaine Natarajan M.D. on 04/27/2016 at 10:51
[2016-04-27] MEDS: 0.9% Sodium Chloride 1,000 ML IV SCH (11:49)
--- NOTE | 2016-04-27 14:01 | PCM.PNMED ---
Subjective Date of Service Apr 27, 2016 Subjective Thi is a 65-year-old male patient with a history of insulin-dependent diabetes, NSTEMI, CAD requiring CABG, hypertension, hyperlipidemia, and bipolar disorder who presented to the ER with complaint of chest pain. Admitted for SD rule out. Hospital day #2. No acute overnight events. Patient's troponin remain negative x 3. Patient states his chest pain is less this morning. Denies shortness of breath, nausea , vomiting, diarrhea. He was somewhat confused in the afternoon and was found wondering in the hallway with his IV pulled out. Exam Vital Signs Vital Sign - Last Date Time Temp Pulse Resp B/P Pulse Ox O2 Delivery O2 Flow Rate FiO2 04/27/16 13:05 65 137/77 04/27/16 10:39 36.4 18 96 Room Air 04/25/16 18:43 2 Intake and Output 04/26/16 04/26/16 04/27/16 Cumulative From/Thru 15:00 23:00 07:00 04/25/16 16:56 - 04/27/16 06:01 Intake Total 490 ml 925 ml 1679 ml 3094 ml Output Total 475 ml 1525 ml 2000 ml Balance 15 ml -600 ml 1679 ml 1094 ml Intake Oral 490 ml 925 ml 1415 ml IV Total 1679 ml 1679 ml Output Urine Total 475 ml 1525 ml 2000 ml # Bowel Movements 0 0 Exam General: No acute distress, looks tired and worn out, appropriately interactive HEENT: Normocephalic, atraumatic. External ears without defect. Pupils equal, round, and reactive to light and accommodation. Moist conjunctivae. Oropharynx with moist mucosa. Neck: Supple with full range of motion.No lymphadenopathy Cardiovascular: Regular rate and rhythm with systolic murmur. No rubs, or gallops appreciated Pulmonary: Clear to auscultation bilaterally with no crackles, wheezes, or rhonchi. Normal respiratory effort with no use of accessory muscles. Abdomen: Bowel tones present. Soft, mild tenderness to right upper quadrant, nondistended. Extremities: No clubbing, cyanosis, edema, appreciated. Skin: Vertical scar mid-sternum. Normal temperature, turgor, and texture; no rash, ulcers, or subcutaneous nodules appreciated. Psychiatric: Normal mood and affect. Alert and oriented to person, place, and time. Lab and Diagnostics Result Diagram: 04/27/1651804/27/16518 X-Rays, CTs and MRIs PROCEDURE: X-RAY CHEST ONE VIEW, PORTABLE ([id number]) INDICATIONS: Chest pain TECHNIQUE: One view of the chest was acquired. COMPARISON: [facility], , CHEST 1VW (PORTABLE), 06/22/2010, 17:24. FINDINGS: Surgical changes and devices: monitor tech leads and sternotomy wires are present over the chest. Lungs and pleura: No pleural effusions or pneumothorax. Lungs are clear. Mediastinum: Mediastinal contours appear normal. Heart size is normal. Bones and chest wall: No suspicious bony lesions. Overlying soft tissues appear unremarkable. IMPRESSION: Acute disease is not seen in the semiupright portable chest. Particularly no pneumothorax or effusion is seen in the left chest. Dictated by: Sony Reynolds M.D. on 04/25/2016 at 18:05 Approved by: Sony Reynolds M.D. on 04/25/2016 at 18:06 Assessment & Plan Acute chest pain in the setting of CAD with previous CABG, present on admission , ongoing -EKG in the ER did not demonstrate any ST elevations -Chest x-ray in the ER did not demonstrate any acute disease -Patient continues to experience some mild chest pain, but improved from onset. -Patient has nitroglycerin and morphine available for pain control -Nitro paste 1 inch placed on chest for pain relief. -Patient to be NPO after midnight -IVF with NS at 80mls/hr -Heparin drip started given continued pain and cardiac history. -Nuclear Stress test revealed evidence of a very small area of possible ischemia affecting the basal inferiolateral wall. Dr Natarajan, cardiology was consulted. We will increase his amlodipine to 10 mg for better blood pressure control and his vasospastic angina. -Echo pending -Troponins x 3 negative -Patient on telemetry, sinus rhythm in 60's, occasional PAC -Continue to monitor Asymptomatic bacteriuria, present on admission, active -UA revealed trace of leukocyte esterase, WBC 11-50, and many bacteria -Will treat with Ciprofloxacin 500 mg PO bid for 5 days Orthostatic hypotension, present on admission, active -Patient c/o dizziness and weakness upon standing -BP laying 170/75 (106), sitting 161/79 (106), standing 137/77 (97) -Patient is on amlodipine 5 mg qd (increased to 10 mg qd) and propranolol 10 mg tid -Recommend to first sit when going from supine to standing, will need to follow up with PCP to discuss BP meds Insulin dependent diabetes mellitus, present on admission, ongoing -A1c 7.5 -Placing patient on low-dose correctional scale -After stress test will switch patient to diabetic diet Chronic hypertension, presumed stable -Continue amlodipine -Start Lisinopril, 5 mg -Continue to monitor Chronic hyperlipidemia presumed stable -Lipid panel: Triglycerides high at 202 -Start atorvastatin 40 mg daily Bipolar disorder, presumed stable. -Continue Latuda Patient is admitted under observation status with expected length of stay less than 2 midnights due to severity of presenting symptoms, risk of adverse event, and complexity of treatment plan. DVT prophylaxis-heparin CODE STATUS: Full code PCP: Dr. Garduno at the [place] Currently patient reports he does not have an official DPO A, however he states that for the length of this hospitalization he would like his friend to be his DPOA. Current DPOA: Morgan Suazo [phone] VTE Prophylaxis: Sub-Q Heparin (Unfractionated) VTE Mechanical Devices: Intermittant Pneumatic CD Resuscitation Status: CPR: Attempt Resuscitation Attending Statement The patient was seen and examined together with Dr. Marmolejo on 04/27/16 and I agree with the history, exam and plan as outlined in the note above. Silvia Marmolejo DO Apr 27, 2016 13:54 Arely Beard DO Apr 28, 2016 18:27
--- NOTE | 2016-04-27 15:58 | NUR ---
Social Work: Initial Assessment Data: Pt is a 65 y/o male admitted for chest pain. Pt's PCP is [facility]. Pt's insurance is Medicare with [employer] supp. EMR reviewed. TRUCK GUARD met with pt at bedside, role explained. Pt states that he lives in [place] alone in a single story home where he uses no DME but owns a walker. Pt states that he has no hx of HH or SNF, no LTC insurance, [facility], is not a caregiver, and does not have an AD/DPOA. Pt accepted information provided by TRUCK GUARD. TRUCK GUARD asked about pt's MH history, pt states he has bipolar. Pt denies SI/HI at this time. Pt states he is connected with counseling through the [facility] and declined any other MH resources. No d/c needs identified at this time. TRUCK GUARD will continue to follow if needs arise. Assessment: Pt who is independent at baseline. Plan: Pt will d/c home via POV with friend, written on board. No d/c needs identified at this time. TRUCK GUARD will continue to follow if needs arise. CECILIA Braden Addendum: 04/27/16 at 1606 by CLIFFORD HEWITT Amended: Links added.
--- NOTE | 2016-04-27 16:28 | NUR ---
Confusion/Dizziness: Patient confused earlier this am. Walking to BR forgetting that he had an IV attached, walked out to hallway without IV and pulled IV out, leaving a trail of blood, did not realize that he had pulled out IV, stating "this thing wasn't attached." Emerson alarm on bed, falls precaution posted, non-skid socks on. Unsteady, reports dizziness. Orthostatic BP obtained and charted. Hospitalist present and aware of orthostatic hypotension.
[2016-04-28] MEDS: Sodium Chloride LOK Flush 10 mL Syringe IVFLUSH SCH ×2 (00:30→08:25)
[2016-04-28 00:44] VITALS: BP 170/82; PULSE 53; RESP 20; O2SAT 96
[2016-04-28 05:00] VITALS: BP 161/83; PULSE 55; RESP 18; O2SAT 96
--- NOTE | 2016-04-28 05:12 | NUR ---
Confusion Pt continues to be pleasantly confused at times during the night. Able to reorient easily. Unsteady on feet. Non skid socks, walker, clare pad in place for safety.1PA to the bathroom. Bed locked, low position. Call light within reach, using appropriately. Pleasant and cooperative with care.
[2016-04-28 06:06] VITALS: PULSE 57
[2016-04-28 07:24] LABS: BASOPHILS % (AUTO) 0.2 % (0-3); EOSINOPHILS % (AUTO) 2.1 % (0-5); MONOCYTES % (AUTO) 8.3 % (4-12); Mean Corpuscular Hemoglobin 30.1 pg (27.0-35.0); Mean Corpuscular Volume 86.1 fL (81-100); NEUTROPHILS % (AUTO) 76.4 % (40-74); Platelet Count 235 bil/L (150-400)
[2016-04-28] MEDS: Insulin LISPRO 300 Unit/3 mL Inj SUBQ SCH ×2 (08:25→12:00)
--- NOTE | 2016-04-28 09:39 | DRSVH ---
[facility] [address] [place] [address] Echocardiogram Report Name: TRAV KEY DStudy Date: 04/28/2016 Height: 68 in Hospital Exam Location: [facility] Weight: 201 lb Gender: Male BSA: 2.0 m2 : 1950 Age: 65 yrs BP: 161/83 mmHg Reason For Study: Chest pain Ordering Physician: Performed By: Ambika Arriaga Referring Physician: [facility] Interpretation Summary 1. Normal left ventricular size, wall thickness and systolic function with an estimated EF of 60-65% 2. Upper limits of normal right ventricular size with normal systolic function 3. No evidence for valvular pathology Compared to the previous study, no appreciable change Procedure: A two-dimensional transthoracic echocardiogram with color flow and Doppler was performed. The study quality was technically adequate. Comparison is made with the echocardiogram of 09/06/2015. The patient was in normal sinus rhythm during the exam. Left Ventricle: The left ventricle is normal in size. There is normal left ventricular wall thickness. Mildly elevated outflow trace velocities. The ejection fraction is estimated to be 60-65%. Septal motion is consistent with post-operative state. Assessment of diastolic parameters indicates normal left ventricular diastolic function and normal filling pressures. Right Ventricle: The right ventricle is at the upper limits of normal in size. The right ventricular systolic function is normal. Atria: Both atria are mildly dilated. There is no Doppler evidence for an interatrial shunt. Mitral Valve: The mitral valve is normal in structure and function. There is trace mitral regurgitation. Aortic Valve: The aortic valve is trileaflet. The aortic valve opens well. No aortic regurgitation is present. Tricuspid Valve: The tricuspid valve leaflets are thin and pliable. There is a trace or physiologic amount of tricuspid regurgitation. The right ventricular systolic pressure is estimated at least 21 mmHg assuming a right atrial pressure of 3 mm Hg. Pulmonic Valve: The pulmonic valve leaflets are thin and pliable; valve motion is normal. There is mild pulmonic regurgitation. Great Vessels: The aortic root is normal size. The ascending aorta is at the upper limits of normal in size. The aortic arch could not be visualized. The IVC is of normal diameter and collapses greater than 50% with a sniff. This suggests a low right atrial pressure of 3 mm Hg. Pericardium/ Pleura There is no pericardial effusion. MMode/2D Measurements & Calculations LVIDd: 5.3 cm RA long axis LVOT diam LVIDs: 3.2 cm LA A2 area: 20.8 cm FS: 40.4 % LA A4 area: 21.3 cm RA area Ao root diam EPSS: 0.45 cm LA length (vol): 5.6 cm IVSd: 0.99 cm LA vol: 66.6 ml : 22.5 cm Aortic Jxn LVPWd: 1.1 cm LA vol index RA vol: 71.3 ml RA asc Aorta : 34.8 mm2 Diam: 3.5 cm IVC diam: 1.6 cm LV rodriguez. diameter/BSA LV sys. diameter/BSA RVD1 (basal) TAPSE: 2.6 cm (cm/m^2): 2.6 (cm/m^2): 1.5 Doppler Measurements & Calculations Ao V2 max MV E max akhil MV E/A: 1.0 TR max akhil : 175.9 cm/sec : 66.0 cm/sec Med Peak E' Akhil : 209.7 cm/sec Ao max PG MV A max akhil TR max PG : 12.4 mmHg : 63.6 cm/sec E/E' med: 9.1 : 17.6 mmHg Ao mean PG MV P1/2t: 57.3 msec Pulm A Revs Dur PA V2 max : 96.9 cm/sec LVOT Max Akhil MV A dur: 0.13 sec PA mean PG : 130.0 cm/sec PA Accel Time SUSAN(I,D): 2.3 cm : 0.14 sec sev ratio MV dec time MV P1/2t max akhil Ao V2 mean LV V1 max PG : 0.19 sec : 105.4 cm/sec MVA(P1/2t): 3.8 cm2 Ao V2 VTI: 37.4 cm LV V1 VTI SUSAN(V,D): 2.5 cm2 : 26.2 cm PA V2 mean SUSAN indexed to BSA Pulm A Revs Dur - MV A : 66.3 cm/sec (cm^2/m^2): 1.1 Dur: -0.02 msec Reading Physician:09:38 AM
--- NOTE | 2016-04-28 10:02 | NUR ---
Behavior/Agitation: Patient stating he wants to leave, getting cloths out of closet to get dressed. Took off non-skid socks, refuses to put them on. Asked to sit down, due to unsteadiness. Refusing to sit. Pacing the floor, argumentative. Attempting to put on belt with pajama pants.
[2016-04-28 10:11] VITALS: BP 158/76; PULSE 64; RESP 16; O2SAT 93
[2016-04-28 10:26] VITALS: PULSE 61
--- NOTE | 2016-04-28 11:12 | NUR ---
Mental health evaluation Mo Ayala Jr. 04/28/16 Reason for hospital visit: Chest pain Precipitating problem: Pt is a 65 year old male with history of cardiac conditions as well as depression who presents to the ED and is subsequently admitted for a cardiac work up. Pt was seen 03/12/16 in the ED for concern for suicidal ideations and consult for mental health evaluation was requested due to pt's occasional agitation and wandering while admitted. Pt met with [facility] upon admission for initial assessment at which point pt denied any current acute mental health concerns. PERINATAL SPECIALIST met with pt and his significant other, Vesta, at bedside. Pt gave verbal permission to speak with Vesta and social work role was explained. Pt reports that he is here for cardiac issues and is reassured that he is feeling well and believes he is likely to be discharged today. Pt reports that he has no thoughts of suicide or homicide presently, and feels at baseline with his depression. Pt and Vesta report that pt saw his psychiatric prescriber, Roxane LITTLE, on the last friday of March. [facility] and [facility] at the [facility]. Of note, pt is oriented to person, place, and situation, however he believes that it is May 10. Pt occasionally loses his train of thought midsentence and does require redirection and assistance from Vesta to provide some information. Per pt's friend this is not uncommon but has certainly become worse recently. Pt denies any history of dementia in his family and attributes his forgetfulness to old age. Pt has no other questions or concerns but expresses discomfort being in the hospital and would like to discharge home as soon as possible. Mental status: Pt is alert and oriented to person, place, situation, but off by about 2 weeks in regards to the date. Pt affect is good with a frustrated mood. Pt shows good humor throughout conversation. Pt eye contact is good. Pt does fidget throughout conversation with IV's. Pt speech is somewhat slurred but otherwise of normal rate rhythm and tone. Pt thought process is logical and linear. Pt attention and focus requires slight redirection. Pt recent and remote memory appears mildly disrupted. Pt insight and judgement are fair. Psychiatric history: Pt has been seen in the ED on 03/12 for depressive symptoms and as he was either unwilling or unable to participate with assessment a DMHP was consulted. Pt was not detained due to lack of acuity as well as consideration that his cognition was not completely evaluated. Pt has baseline suicidality per previous report, however denies this presently, with plan or intent. Pt denies access to firearms. Pt is currently enrolled with [facility] outpatient psychiatry. Substance use history: Pt denies drug or alcohol abuse. No BAL or UDS were ordered as pt is a primarily medical patient. Legal history: N/A Diagnosis: F31.9 Bipolar disorder, Unspecified(Per Roxane Lugo, [facility]) Disposition: Pt, who is admitted for medical concerns, has a history of mental illness and mental health evaluation was requested due to confusion and wandering. PERINATAL SPECIALIST met with pt at bedside who certainly does appear to be confused, however denies any suicidality, homicidal or perceptual disturbances in relation to his current visit or symptoms. Pt's friend present in the room believes his confusion has worsened recently, however, pt only requires occasional redirection and assistance in following conversation, which his friend Vesta helps him with. Pt has outpatient follow up for his underlying Bipolar disorder, which he agrees to follow up with. Pt expresses frustration with being in the hospital, which PERINATAL SPECIALIST provided active listening and attempted to explain policies in regards to bed alarm. Pt does not appear to be imminently dangerous to himself secondary to a mental illness and has ample and appropriate outpatient follow up through the [facility]. CECILIA Blum
--- NOTE | 2016-04-28 12:01 | NUR ---
Social Work: Discharge Data: Pt is on day 3 of hospitalization. EMR reviewed, pt discussed in rounds. MD states pt ready for d/c today. Requested SENIOR PROJECT ENGINEER meet with pt regarding mental status. ED SENIOR PROJECT ENGINEER met with pt and reports he is cleared and safe for d/c from a mental health perspective. requested PT evaluation for pt who recommends home with outpt PT. requested HH for RN and SENIOR PROJECT ENGINEER. SENIOR PROJECT ENGINEER met with pt, HH choice list given. Pt states [facility] is his choice. SENIOR PROJECT ENGINEER called [facility] and left a message and faxed F2F with H&P and Facesheet for pt. [facility] is closed on the weekends, possible call from them on Friday morning regarding pt. SENIOR PROJECT ENGINEER will continue to follow. Assessment: Pt who is independent at baseline. Plan: Pt will d/c home via POV with friend with [facility], RN/SENIOR PROJECT ENGINEER. [facility] is closed on the weekends, possible call from them on Friday morning regarding pt. SENIOR PROJECT ENGINEER will continue to follow. CECILIA Braden
--- NOTE | 2016-04-28 12:24 | PCM.DIMED ---
Discharge Instructions Date of Service Apr 28, 2016 Dates of Hospitalization Apr 25, 2016 at 19:29 Discharge Diagnosis Discharge Diagnosis Acute on chronic chest pain with previous CABG A symptomatic bacteriuria Orthostatic hypotension Diabetes Medication Instructions Her Norvasc has been increased from 5 mg daily to 10 mg daily please take the 10 mg daily Diet Heart Healthy Activity Home Health Phyical Therapy Call your provider Fever or Chills, Shortness of breath, Bleeding, Chest pain, Vomitting Patient Instructions Follow-up Provider: [facility] Follow-up with PCP in: 1 week Follow-up in: 1 week (please follow-up with your palaeontologist) Arely Beard DO Apr 28, 2016 12:24
[2016-04-28] MEDS ORDERED: ATOR40TA69 PO (12:27)
[2016-04-28] MEDS ORDERED: AMLO5TAB2 PO (12:27)
[2016-04-28] MEDS ORDERED: LISI-571 PO (12:27)
[2016-04-28] MEDS ORDERED: CIPR-231 PO (12:27)
--- NOTE | 2016-04-28 13:33 | NUR ---
Discharge: Patient discharged to home at approx 1315. IV d/c'd intact, telemetry removed, air sampling and monitoring notified. Personal belongings sent home with patient. Reviewed new prescriptions, home medications, d/c instructions and follow up appointments. Verbalized understanding. Escorted to main entrance via wheelchair accompanied by SUPPORT TEACHER.
--- NOTE | 2016-04-28 18:39 | PCM.DC.MED ---
Discharge Summary Date of Service Apr 28, 2016 Dates of Hospitalization Date of Hospital Admission Apr 25, 2016 at 19:29 Date of Discharge: Apr 28, 2016 Providers: Admitting Physician: Lupe Beasley DO [facility]: Lupe Beasley DO Diagnosis at Time of Discharge Diagnosis at Time of Discharge Acute on chronic chest pain with previous CABG A symptomatic bacteriuria Orthostatic hypotension Diabetes Procedures XRay, CTs & MRIs PROCEDURE: X-RAY CHEST ONE VIEW, PORTABLE ([id number]) INDICATIONS: Chest pain TECHNIQUE: One view of the chest was acquired. COMPARISON: [facility], , CHEST 1VW (PORTABLE), 06/22/2010, 17:24. FINDINGS: Surgical changes and devices: smocker leads and sternotomy wires are present over the chest. Lungs and pleura: No pleural effusions or pneumothorax. Lungs are clear. Mediastinum: Mediastinal contours appear normal. Heart size is normal. Bones and chest wall: No suspicious bony lesions. Overlying soft tissues appear unremarkable. IMPRESSION: Acute disease is not seen in the semiupright portable chest. Particularly no pneumothorax or effusion is seen in the left chest. Dictated by: Sony Reynolds M.D. on 04/25/2016 at 18:05 Approved by: Sony Reynolds M.D. on 04/25/2016 at 18:06 Brief History 65-year-old male patient with a history of insulin-dependent diabetes, NSTEMI, CAD requiring CABG, hypertension, hyperlipidemia, and bipolar disorder presents to the ER with complaint of chest pain. Patient reports that on Friday he began experiencing chest pain that radiated to his entire body. Patient states that he did not go to the doctor as he suspected the pain would go away on its own. Patient states that he is unsure if the pain subsided or he just became accustomed to it. Patient reports that today the pain became significantly worse and he called his friend to bring him to the ER. Patient reports that he was experiencing sharp midsternal chest pain that was radiating into his left shoulder and down his left arm, as well as across his chest and back. Patient reports that he began feeling very short of breath as though he was taking very shallow breaths. He states that he felt very hot and flushed all over. Patient reports that this episode occurred while he was resting at home. Patient reports that he is currently still experiencing some chest pain, but reports that it is significantly less than that onset. He also reports that he continues to have some mild shortness of breath. Patient reports that when he arrived in the ER he was feeling quite dizzy, but this has been improving as he is resting in bed. Patient reports that this episode of chest pain was unlike his previous episode that resulted in him requiring a CABG. Patient denies that he has been experiencing episodes of chest pain recently. Patient denies any headache, blurred vision, nausea, vomiting, diarrhea, myalgias. While in the ER patient received nitroglycerin and morphine. Vital signs in the ER were as follows, temperature 36.2, pulse 68, respiratory rate 16, blood pressure 142/77, pulse ox 96 on room air. Hospital Course Patient had a full cardiac workup while here for his chest pain. Patient's stress test revealed inferolateral wall self resolving ischemia with rest may be secondary to Prinzmetal angina. The patient's amlodipine was increased from 5 mg to 10 mg daily. The patient was to discharge home yesterday however the patient did have some altered mental status changes. This is most likely secondary to being in an unfamiliar place which does tend to happen to patient's with his psychiatric disorders.. The patient states that this has happened to him before and usually this means that he needs to eat. The patient's close friend who is with him daily and assist him with his daily living agreed with this. The patient's friend states that generally when he feels hungry he generally becomes disoriented and once he eats its atypical for him to go back to his normal baseline status. After the patient did have some lunch he went back to his normal baseline status later in the day. Physical therapy did recommend home physical therapy. The patient will go home with home health. Just prior to discharge the patient did have a ground-level fall. The patient was standing next to his bed and felt that his legs were becoming weak and then knelt down to the floor. The patient did not hit his head, there was no bruising, bleeding, or scrapes on any of his extremities. Patient had a negative log roll, negative tenderness to palpation on any bones, patient was able to move all extremities with no pain. The patient will require outpatient physical therapy or home health physical therapy. The patient does seem like he is having some early signs of dementia. One of the mental health workers from the emergency room who is trained in evaluating patient's for decision-making came and evaluated the patient and stated that he is able to make his own clinical decisions. The patient did feel that he was strong enough to go home and was discharged today. The patient's friend who takes him to all his appointments agrees that the patient does have some early signs of dementia and may need to move to an assisted living situation and mentioned that at the patient's next primary care visit that they will bring this up and discuss this further with his PCP. The patient was discharged home with home health in stable condition. Acute chest pain in the setting of CAD with previous CABG, present on admission , ongoing -EKG in the ER did not demonstrate any ST elevations -Chest x-ray in the ER did not demonstrate any acute disease -Patient continues to experience some mild chest pain, but improved from onset. -Patient has nitroglycerin and morphine available for pain control -Nitro paste 1 inch placed on chest for pain relief. -Patient to be NPO after midnight -IVF with NS at 80mls/hr -Heparin drip started given continued pain and cardiac history. -Nuclear Stress test revealed evidence of a very small area of possible ischemia affecting the basal inferiolateral wall. Dr Natarajan, cardiology was consulted. We will increase his amlodipine to 10 mg for better blood pressure control and his vasospastic angina. -Echo pending -Troponins x 3 negative -Patient on telemetry, sinus rhythm in 60's, occasional PAC -Continue to monitor Asymptomatic bacteriuria, present on admission, active -UA revealed trace of leukocyte esterase, WBC 11-50, and many bacteria -Will treat with Ciprofloxacin 500 mg PO bid for 5 days Orthostatic hypotension, present on admission, active -Patient c/o dizziness and weakness upon standing -BP laying 170/75 (106), sitting 161/79 (106), standing 137/77 (97) -Patient is on amlodipine 5 mg qd (increased to 10 mg qd) and propranolol 10 mg tid -Recommend to first sit when going from supine to standing, will need to follow up with PCP to discuss BP meds Insulin dependent diabetes mellitus, present on admission, ongoing -A1c 7.5 -Placing patient on low-dose correctional scale -After stress test will switch patient to diabetic diet Chronic hypertension, presumed stable -Continue amlodipine -Start Lisinopril, 5 mg -Continue to monitor Chronic hyperlipidemia presumed stable -Lipid panel: Triglycerides high at 202 -Start atorvastatin 40 mg daily Bipolar disorder, presumed stable. -Continue Latuda Patient is admitted under observation status with expected length of stay less than 2 midnights due to severity of presenting symptoms, risk of adverse event, and complexity of treatment plan. DVT prophylaxis-heparin CODE STATUS: Full code PCP: Dr. Garduno at the OR Currently patient reports he does not have an official DPO A, however he states that for the length of this hospitalization he would like his friend to be his DPOA. Current DPOA: Morgan Suazo [phone] Exam Vital Signs (Last) Date Time Temp Pulse Resp B/P Pulse Ox O2 Delivery O2 Flow Rate FiO2 04/28/16 10:26 61 04/28/16 10:11 36.4 16 158/76 93 Room Air 04/25/16 18:43 2 Exam Physical Exam: GEN: Patient was awake, alert, responding appropriately to questions HEENT: PERRLA, EOMI, Neck soft supple, trachea midline, nomocephalic/atraumatic CV: +S1/S2, RRR, systolic murmurs auscultated Respiratory: CTAB, no wheezes, rales, rhonchi GI: +bowel sounds x4, soft, compressible, non TTP EXT: no c/c/e Musculoskeletal: 5 out of 5 strength in the upper extremities, 5 out of 5 strength in the lower extremities, negative log roll, negative pain with palpation to upper extremity/lower extremity/thorax/head/neck Neuro: CN II-XII grossly intact Psych: mood and affect were appropriate Test 04/25/16 17:10 04/26/16 06:05 04/27/16 04:30 04/27/16 05:19 Hemoglobin A1c 7.5% (4.8-5.6) Magnesium Level 1.9mg/dL (1.6-2.6) Hold Lester Top Tube Received (Received) Troponin T < 0.010ug/L (0.0-0.011) Triglycerides Level 202mg/dL (0-149) Cholesterol Level 168mg/dL (100-199) LDL Cholesterol, Calculated 92.600mg/dL (0-99) VLDL Cholesterol 40.400mg/dL HDL Cholesterol 35mg/dL (>39) Cholesterol/HDL Ratio 4.80 (0.0-4.4) Urine Color Yellow (YELLOW) Urine Appearance Hazy (CLEAR,HAZY) Urine pH 7.0 (5.0-8.0) Urine Specific Cedar 1.015 (1.003-1.035) Urine Protein Negativemg/dL (NEG,TRACE) Urine Glucose (UA) 500mg/dL (NEGATIVE) Urine Ketones Negativemg/dL (NEGATIVE) Urine Occult Blood Trace (NEGATIVE) Urine Nitrite Negative (NEGATIVE) Urine Bilirubin Negative (NEGATIVE) Urine Urobilinogen Normalmg/dL (NORMAL) Urine Leukocyte Esterase Trace (NEGATIVE) Urine RBC 0-2/hpf (0-2) Urine WBC 11-50/hpf (0-5) Urine Epithelial Cells Occasional/hpf (NONE-MOD) Urine Crystals None seen (NONE SEEN) Urine Bacteria Many/hpf (NONE-FEW) Urine Hyaline Casts None/lpf (NONE) Urine Granular Casts None seen (NONE SEEN) Urine Waxy Casts None seen (NONE SEEN) Urine Red Blood Cell Casts None seen (NONE SEEN) Urine White Blood Cell Casts None seen (NONE SEEN) Urine Mucus None seen (None Seen) Urine Trichomonas None seen (NONE SEEN) Urine Yeast None (NONE SEEN) Urinalysis Comment Activated Partial Thromboplast Time 49.5sec (22.8-33.0) Test 04/28/16 06:55 White Blood Count 9.5th/mm3 (3.8-10.1) Red Blood Count 5.34mil/mm3 (4.40-5.80) Hemoglobin 16.1g/dL (13.8-17.2) Hematocrit 46.0% (41.0-50.0) Mean Corpuscular Volume 86.1fL (81-100) Mean Corpuscular Hemoglobin 30.1pg (27.0-35.0) Mean Corpuscular Hemoglobin Concent 35.0% (32.0-37.0) Red Cell Distribution Width 13.1% (12.3-15.4) Platelet Count 235bil/L (150-400) Neutrophils (%) (Auto) 76.4% (40-74) Lymphocytes (%) (Auto) 12.9% (14-46) Monocytes (%) (Auto) 8.3% (4-12) Eosinophils (%) (Auto) 2.1% (0-5) Basophils (%) (Auto) 0.2% (0-3) Sodium Level 136mEq/L (134-144) Potassium Level 4.0mEq/L (3.5-5.2) Chloride Level 97mEq/L (97-108) Carbon Dioxide Level 24mmol/L (18-29) Blood Urea Nitrogen 10mg/dL (8-27) Creatinine 0.63mg/dL (0.76-1.27) Estimat Glomerular Filtration Rate 135mL/min (>59) Glucose Level 224mg/dL (60-99) Calcium Level 10.0mg/dL (8.5-10.1) Total Bilirubin 0.7mg/dL (0.0-1.2) Aspartate Amino Transf (AST/SGOT) 18U/L (0-50) Alanine Aminotransferase (ALT/SGPT) 21U/L (0-44) Alkaline Phosphatase 151U/L (25-160) Total Protein 7.7g/dL (6.4-8.4) Albumin 4.2g/dL (3.4-5.0) Discharge Medications Discharge Medications Amlodipine (Amlodipine) 5 Mg Tablet 10 MG PO DAILY Prescribed by: ARELY BEARD DO Aspirin Chew (Aspirin Chew) 81 Mg Chew 81 MG PO DAILY (Reported) Atorvastatin Calcium (Atorvastatin Calcium) 40 Mg Tablet 40 MG PO HS Prescribed by: ARELY BEARD DO Ciprofloxacin (Cipro) 500 Mg Tablet 500 MG PO BID Prescribed by: ARELY BEARD DO Insulin Glargine (Lantus U100 Insulin Vial) 100 Unit/Ml Vial 10 UNIT SUBQ DAILY (Reported) Can't remember dose, states depends on blood sugar Latanoprost (Latanoprost) 2.5 Ml Drops 1 GTT BOTH_EYES HS (Reported) Lisinopril (Lisinopril) 5 Mg Tablet 5 MG PO DAILY Prescribed by: ARELY BEARD DO Lurasidone (Latuda) 20 Mg Tablet 30 MG PO DAILY (Reported) As needed Naproxen (Naproxen) 250 Mg Tablet 250 MG PO BID PRN PRN For Pain (Reported) Propranolol HCl (Propranolol HCl) 10 Mg Tablet 10 MG PO TID PRN PRN For Anxiety (Reported) Additional med instructions Her Norvasc has been increased from 5 mg daily to 10 mg daily please take the 10 mg daily Followup Plan Disposition: Home in stable condition Follow-up plan Patient will follow-up with his PCP in regards to possible early signs of dementia. Patient will be discharged home with home health with physical therapy services Discharge Diet: Heart Healthy Discharge Activity: Home Health Phyical Therapy Follow-up Provider: [facility] Follow-up with PCP in: 1 week Follow-up in: 1 week (please follow-up with your vice president of software engineering) Time spent Greater than 35 minutes copies to: [facility] Arely Beard DO Apr 28, 2016 18:39
== END 2016-04-28 13:15 | disposition home health service (06) ==
LOC: SED 16:48 → MPC 19:29
PROVIDERS: ADMIT Internal Medicine; ATTEND Internal Medicine
DX: R07.9 Chest pain, unspecified (principal); G89.29 Other chronic pain; I25.10 Atherosclerotic heart disease of native coronary artery without angina pectoris; I10 Essential (primary) hypertension; E78.5 Hyperlipidemia, unspecified; E11.9 Type 2 diabetes mellitus without complications; F31.9 Bipolar disorder, unspecified; G47.33 Obstructive sleep apnea (adult) (pediatric); F41.9 Anxiety disorder, unspecified; Z96.643 Presence of artificial hip joint, bilateral; R82.71 Bacteriuria; I95.1 Orthostatic hypotension; R41.82 Altered mental status, unspecified; I25.2 Old myocardial infarction; Z95.1 Presence of aortocoronary bypass graft; Z79.82 Long term (current) use of aspirin; Z79.4 Long term (current) use of insulin